=== PATIENT | male | born 1995 | race African-American/Black ===

== ENCOUNTER 2019-04-01 20:35 | Emergency (ER) | payer SELFPAY ==
[~2019-04-01] VITALS: Ht 190.5 cm; Wt 81.6 kg
[2019-04-01 20:40] VITALS: BP 117/69
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
[2019-04-01] MEDS ORDERED: Acetaminophen 500mg (ES) tab ORAL ONE (20:45)
[2019-04-01] MEDS ORDERED: Tetanus/Diptheria/Pertussis IM ONE (20:45)
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
[2019-04-01 21:13] VITALS: BP 117/69
--- NOTE | 2019-04-01 21:14 | NUR ---
ED Nurse Note: Pt cleared by health care Provider for discharge. DC instructions/prescription was given and explained to [employer] and verbalized understanding of teachings. All medical deviecs such as ID band removed. Pt is AAO x4, ambulatory and left with all personal belongings.
== END 2019-04-01 21:14 ==
LOC: EMR 20:41
DX: S01.111A Laceration without foreign body of right eyelid and periocular area, initial encounter (principal); Y04.2XXA Assault by strike against or bumped into by another person, initial encounter; Y92.9 Unspecified place or not applicable; Z23 Encounter for immunization
CPT/HCPCS: 90471; 90715; 99282